=== PATIENT | male | born 1955 | race Caucasian/White ===

== ENCOUNTER 2023-10-08 10:38 | Inpatient (IN) ==
[2023-10-08] MEDS: NITROGLYCERIN 2% OINTMENT 30GM TUBE EXT STA (10:55)
[2023-10-08] MEDS: METOPROLOL TARTRATE 1 MG/ML VIAL IV ONE (10:55)
[2023-10-08] MEDS: NITROGLYCERIN 2% OINTMENT 30GM TUBE EXT ONE (10:55)
[2023-10-08] MEDS: METOPROLOL TARTRATE 1 MG/ML VIAL IV STA (10:56)
--- NOTE | 2023-10-08 10:58 | Emergency Department Note ---
Impression & Plan Precordial chest pain, CHF (congestive heart failure), Acute electrocardiogram changes, History of coronary artery disease, Elevated troponin, Hypomagnesemia ED Provider Note NAME: VIGNESH OJEDA AGE: 67 SEX: M : 1955 ARRIVES VIA: Ambulance INFORMANT: [Patient][ems] ED PROVIDER(S): [Evan Toro MD] CHIEF COMPLAINT: Chest pain HISTORY OF PRESENT ILLNESS: The patient is a 67-year-old male who states that he has used a half of a bottle of his nitroglycerin in the last 3 days. Has had chest pain which has been responding to nitroglycerin. This morning, he took 3 nitroglycerin without relief. He took 2 baby aspirin. EMS gave him an additional 4 baby aspirin during the transport to the hospital. Patient states that he is currently having pain and it seems like today, the nitroglycerin was not helping. Patient does notice his symptoms come on with exertion. He feels short of breath, mildly sweaty and somewhat nauseated. Patient has a history of 2 bypasses in 2016. Of note, the patient did take his normal medications this a.m. PMHx/PSHx/Social Hx: See Below PHYSICAL EXAM: GENERAL: Patient is in no acute distress. HEENT: No acute trauma, normocephalic atraumatic, mucous membranes moist, no nasal congestion. NECK: No stridor, no adenopathy, no meningismus, trachea is midline. LUNGS: Diminished breath sounds with some occasional crackles bilaterally, no respiratory distress. HEART: No obvious murmur, occasional extra beat heard, normal rate. ABDOMEN: Soft, nontender, no peritonitis. EXTREMITIES: No cyanosis, full range of motion of all the joints without pain or difficulty. Mild to moderate bilateral pedal edema. NEUROLOGIC: Oriented x 3, no acute motor or sensory deficits, no focal weakness. SKIN: No jaundice, no diaphoresis. DIFFERENTIAL DIAGNOSIS: Cardiac ischemia, CT, anemia, electrolyte imbalance, CHF, among others. EMERGENCY DEPARTMENT PROCEDURES: MEDICAL DECISION MAKING: There is no leukocytosis or concerning anemia. There is a normal platelet count. No coagulopathy. No renal failure. Magnesium is low at 1.3. No concerning liver enzyme elevation. No evidence for pancreatitis. ECG showed what appears to be a normal sinus rhythm although, there were some ST depressions and T wave inversions laterally. Cardiac enzyme testing x 1 is somewhat elevated. This cardiac troponin elevation could be secondary to cardiac injury. BNP was elevated consistent with fluid overload. Chest x-ray does suggest some mild CHF. Cardiomegaly was seen. The patient presents with chest discomfort despite nitroglycerin taken at home. He has known coronary disease. The patient was given 2 inches of nitroglycerin paste. He received IV magnesium, he was given 5 mg of IV Lopressor. With the above treatment, the patient is now pain-free. A repeat ECG was done showing similar findings of the first. I did speak with Dr. Berrios of cardiology, no need for emergent cardiac catheterization/intervention. The patient is being hospitalized. He very likely has unstable angina. This has led to some cardiac injury, possibly a non-ST elevation CT. Further care in the hospital, further cardiac workup is warranted. I did speak with the patient about his findings, I spoke with case management, the on-call hospitalist was consulted. Prior/Outside records/notes reviewed: Today's EMS notes describing his complaints and transport to this hospital. ECG per my interpretation: Indication was chest pain. The ECG shows a sinus rhythm with PACs. The rate is 91. There is some baseline artifact. There is some ST depression in the lateral leads. No ST elevation. QTc is 504. Compared to an ECG from 24 April 2008, significant changes have occurred. Repeat ECG per my interpretation: Indication was chest pain. The ECG shows a normal sinus rhythm with a rate of 75. There are inverted T waves seen in the lateral leads. No obvious ST elevation. No PVCs. The QTc was 484. Compared to today's earlier ECG, I see no significant change. Continuous Cardiac Monitoring per my interpretation: An order was placed for continuous cardiac monitoring. The monitor shows a rate of 96 with normal sinus rhythm. Imaging/x-ray results per my interpretation: Chest x-ray shows potential CHF. There was no pneumonia or pneumothorax. Chronic Medical/Social conditions affecting care: History of coronary artery disease. Care/Management discussed with: Cardiology-Dr. Berrios. Case management and the on-call hospitalist. Level of care consideration(s): After review of the information above and other included data: --I believe the patient requires escalation of care to admission Critical Care Note: I have personally spent 46 minutes of critical care time in the direct management of this patient. This includes bedside care, interpretation of diagnostic studies, and testing, discussion with consultants, patient, and family members, and other required patient management activities. This 46 minutes is in excess of all separately billable procedures. DISPOSITION: Admission with cardiology consult Past Med/Surg History Medical History BPH (benign prostatic hyperplasia) Tobacco abuse CHF (congestive heart failure) HTN (hypertension) DM2 (diabetes mellitus, type 2) CAD (coronary artery disease) Surgical History (Updated 10/08/23 @ 13:34 by Silver Mcgraw MD) S/P CABG (coronary artery bypass graft) Social History Smoking Status: Current every day smoker Preferred Language: Burmese Feels Safe at Home: Yes Allergies Allergies Allergy/AdvReac Type Severity Reaction Status Date / Time isosorbide [From Imdur] Allergy Severe Nausea and Unverified 10/08/23 12:19 Headache Home Meds Home Medications Medication Instructions Recorded Confirmed cyanocobalamin (vitamin B-12) 1,000 mcg PO DAILY 10/08/23 10/08/23 1,000 mcg tablet,extended release (Vitamin B-12 ER) empagliflozin 25 mg tablet 12.5 mg PO DAILY 10/08/23 10/08/23 (Jardiance) lisinopril 10 mg tablet 10 mg PO DAILY 10/08/23 10/08/23 metoprolol tartrate 25 mg tablet 25 mg PO BID 10/08/23 10/08/23 nitroglycerin 0.4 mg sublingual 0.4 mg sublingual UD PRN Chest Pain 10/08/23 10/08/23 tablet (Nitrostat) omeprazole 20 mg capsule,delayed 20 mg PO DAILY 10/08/23 10/08/23 release rosuvastatin 20 mg tablet 20 mg PO DAILY 10/08/23 10/08/23 terazosin 2 mg capsule 2 mg PO HS 10/08/23 10/08/23 Results & Data (ED) Vital Signs Vital Signs - 24 hr 10/08/23 10:39 10/08/23 10:46 10/08/23 10:53 Temperature 36.8 C Temperature Source Oral Pulse Rate 88 Pulse Rate [Apical] Pulse Rate from SpO2 Sensor Pulse Rhythm Irregular Respiratory Rate 34 H Respiratory Effort / Characteristics Non-Labored Spontaneous Respiratory Depth Normal Respiratory Pattern Regular Blood Pressure 170/96 H Blood Pressure [Left Arm] Blood Pressure Mean 120 Blood Pressure Mean [Left Arm] Pulse Oximetry 94 Oxygen Delivery Method Room Air Room Air Room Air Sepsis Recent Fever Within 48 Hours No Sepsis New/Unexplained Change in Mental Status No Sepsis Action Taken by Nursing No Action Required 10/08/23 11:41 10/08/23 12:00 10/08/23 12:25 Temperature Temperature Source Pulse Rate 77 77 71 Pulse Rate [Apical] Pulse Rate from SpO2 Sensor 77 Pulse Rhythm Respiratory Rate 28 H Respiratory Effort / Characteristics Respiratory Depth Respiratory Pattern Blood Pressure 137/80 107/82 Blood Pressure [Left Arm] Blood Pressure Mean 90 Blood Pressure Mean [Left Arm] Pulse Oximetry 89 L Oxygen Delivery Method Sepsis Recent Fever Within 48 Hours Sepsis New/Unexplained Change in Mental Status Sepsis Action Taken by Nursing 10/08/23 12:30 10/08/23 12:30 10/08/23 13:00 Temperature Temperature Source Pulse Rate 71 75 Pulse Rate [Apical] 73 Pulse Rate from SpO2 Sensor 71 75 Pulse Rhythm Respiratory Rate 21 23 26 H Respiratory Effort / Characteristics Non-Labored Spontaneous Respiratory Depth Normal Respiratory Pattern Regular Blood Pressure 114/71 132/75 Blood Pressure [Left Arm] 114/71 Blood Pressure Mean 85 94 Blood Pressure Mean [Left Arm] 85 Pulse Oximetry 95 95 94 Oxygen Delivery Method Room Air Sepsis Recent Fever Within 48 Hours Sepsis New/Unexplained Change in Mental Status Sepsis Action Taken by Nursing 10/08/23 13:30 10/08/23 14:03 10/08/23 14:30 Temperature Temperature Source Pulse Rate 75 91 H Pulse Rate [Apical] 74 Pulse Rate from SpO2 Sensor 75 90 Pulse Rhythm Respiratory Rate 22 30 H 19 Respiratory Effort / Characteristics Non-Labored Spontaneous Respiratory Depth Normal Respiratory Pattern Blood Pressure 126/71 122/81 Blood Pressure [Left Arm] 115/66 Blood Pressure Mean 89 94 Blood Pressure Mean [Left Arm] 82 Pulse Oximetry 95 95 95 Oxygen Delivery Method Room Air Sepsis Recent Fever Within 48 Hours Sepsis New/Unexplained Change in Mental Status Sepsis Action Taken by Nursing 10/08/23 14:30 Temperature Temperature Source Pulse Rate 75 Pulse Rate [Apical] Pulse Rate from SpO2 Sensor Pulse Rhythm Respiratory Rate 19 Respiratory Effort / Characteristics Respiratory Depth Respiratory Pattern Blood Pressure 115/66 Blood Pressure [Left Arm] Blood Pressure Mean 82 Blood Pressure Mean [Left Arm] Pulse Oximetry Oxygen Delivery Method Sepsis Recent Fever Within 48 Hours Sepsis New/Unexplained Change in Mental Status Sepsis Action Taken by Residential Medications Current Medication List: was personally reviewed by me Laboratory Data Attestation: I reviewed the patient's lab results. 10/08/23 10:50 10/08/23 10:50 Lab Results 10/08/23 10/08/23 Range/Units 10:50 12:29 WBC 8.25 (4.8-10.8) K/ul RBC 4.15 L (4.70-6.10) M/uL Hgb 13.8 L (14.0-18.0) g/dl Hct 42.3 (42.0-52.0) % MCV 101.9 H (80.0-100.0) fL MCH 33.3 (25.0-34.0) pg MCHC 32.6 (32.0-36.0) g/dL RDW Std Deviation 50.3 H (36.4-46.3) fL RDW Coeff of Alexandr 13.5 (11.5-14.5) % Plt Count 184 (130-400) K/uL MPV 10.3 (9.4-12.4) fL Immature Gran % (Auto) 0.5 % Neut % (Auto) 77.3 % Lymph % (Auto) 13.7 % Luce % (Auto) 6.3 % Eos % (Auto) 1.6 % Baso % (Auto) 0.6 % Neut # (Auto) 6.38 (1.40-6.50) K/uL Lymph # (Auto) 1.13 L (1.20-3.40) K/uL Luce # (Auto) 0.52 (0.11-0.59) K/uL Eos # (Auto) 0.13 (0.00-0.50) K/uL Baso # (Auto) 0.05 (0.00-0.20) K/uL Immature Gran # (Auto) 0.04 (0.01-0.20) K/uL PT 10.9 (9.0-12.0) Seconds INR 1.0 (0.9-1.1) APTT 28 (21-31) Seconds PTT Ratio 1.0 Sodium 138 (136-145) mmol/L Potassium 3.6 (3.5-5.1) mmol/L Chloride 103 (98-107) mmol/L Carbon Dioxide 23 (21-32) mmol/L Anion Gap 12 H (3-11) BUN 11 (6-23) mg/dl Creatinine 0.76 (0.6-1.4) mg/dl Est Cr Clr Drug Dosing 106.9 ml/min Est GFR ( Amer) 108.7 ml/min Est GFR (Non-Af Amer) 93.7 ml/min BUN/Creatinine Ratio 14.5 (10-20) Glucose 226 H (70-99(Fasting)) mg/dl Estimat Average Glucose 206 mg/dl Hemoglobin A1c 8.8 H (4.5-5.6) % Calcium 9.5 (8.6-10.3) mg/dl Magnesium 1.3 L (1.7-2.4) mg/dl Total Bilirubin 0.5 (0.2-1.0) mg/dl AST 20 (13-39) U/L ALT 18 (7-52) U/L Alkaline Phosphatase 48 (34-104) U/L Troponin I High Sens 28.7 H 214.9 H* D (0-20) pg/ml B-Natriuretic Peptide 647 H (0-100) pg/ml Total Protein 7.8 (6.0-8.3) gm/dl Albumin 4.6 (3.4-5.0) gm/dl Globulin 3.2 (2.5-4.0) gm/dl Albumin/Globulin Ratio 1.4 (0.9-2) Lipase 20 (11-82) U/L Administered Medications Heparin Sodium/Dextrose (Heparin Sodium/Dextrose) 25,000 units in 500 mls @ 19 mls/hr IV .Q24H [facility]; Protocol Stop: 11/07/23 13:44 Last Admin: 10/08/23 14:28 Dose: 950 units/hr, 19 mls/hr Documented By: RONNY Co-signed By: MARC Magnesium Sulfate/Dextrose (Magnesium Sulfate / D5w) 1 gm in 100 mls @ 50 mls/hr IV Q2H [facility] Stop: 10/08/23 17:29 Last Admin: 10/08/23 14:44 Dose: Not Given Documented By: Admin: 10/08/23 14:43 Dose: Not Given Documented By: Discontinued Medications Furosemide (Furosemide Inj 20 Mg/2 Ml Vial) 20 mg IV ONE ONE Stop: 10/08/23 13:29 Last Admin: 10/08/23 14:30 Dose: 20 mg Documented By: RONNY Heparin Sodium (Porcine) (Heparin Sod (Porcine) 1000 Unit/Ml) 4,000 units IV NOW ONE Stop: 10/08/23 13:44 Last Admin: 10/08/23 14:28 Dose: 4,000 units Documented By: RONNY Co-signed By: MARC Magnesium Sulfate/Dextrose (Magnesium Sulfate / D5w) 1 gm in 100 mls @ 100 mls/hr IV Q1H [facility] Stop: 10/08/23 13:33 Last Infusion: 10/08/23 13:59 Dose: Infused Documented By: Admin: 10/08/23 12:38 Dose: 100 mls/hr Documented By: Infusion: 10/08/23 12:38 Dose: Infused Documented By: Admin: 10/08/23 11:40 Dose: 100 mls/hr Documented By: RONNY Metoprolol Tartrate (Metoprolol Tartrate 1 Mg/Ml Vial) Confirm Administered Dose 5 mg IV .STK-MED ONE Stop: 10/08/23 10:54 Last Admin: 10/08/23 10:55 Dose: Not Given Documented By: RONNY Metoprolol Tartrate (Metoprolol Tartrate 1 Mg/Ml Vial) 5 mg IV NOW STA Stop: 10/08/23 10:54 Last Admin: 10/08/23 10:56 Dose: 5 mg Documented By: RONNY Nitroglycerin (Nitroglycerin 2% Ointment 30gm Tube) Confirm Administered Dose 18 inch EXT .STK-MED ONE Stop: 10/08/23 10:52 Last Admin: 10/08/23 10:55 Dose: Not Given Documented By: RONNY Nitroglycerin (Nitroglycerin 2% Ointment 30gm Tube) 2 inch EXT NOW STA Stop: 10/08/23 10:54 Last Admin: 10/08/23 10:55 Dose: 2 inch Documented By: RONNY Imaging Data Radiologist's Impression: Chest X-Ray 10/08/23 10:46 XR chest 1V portable HISTORY: 67 years-old Male Chest pain, nonspecific COMPARISON: None TECHNIQUE: AP view of the chest FINDINGS: Cardiac silhouette is enlarged. Median sternotomy wires are present with findings suggestive of probable prior CABG. Pulmonary vascular congestion with nonspecific interstitial coarsening. No pneumothorax, pleural effusion or airspace consolidation. Degenerative changes of the shoulders and spine. IMPRESSION: 1. Cardiomegaly with pulmonary vascular congestion and nonspecific interstitial coarsening. 2. No airspace consolidation typical for pneumonia. ACT 112: Negative or not required by law. The above report was generated using voice recognition software. It may contain grammatical, syntax or spelling errors. Electronically signed by: Moses Espinosa M.D. 10/08/2023 11:24 AM Discharge Plan Visit Data Chief Complaint: Chest Pain Stated Complaint: CHEST PAIN ED Provider: Evan Toro Discharge Problem: Precordial chest pain, CHF (congestive heart failure), Acute electrocardiogram changes, History of coronary artery disease, Elevated troponin, Hypomagnesemia Patient Disposition: Admitted As Inpatient Condition: Fair Forms Stand Alone Forms: [facility] Prescriptions Prescriptions: No Action cyanocobalamin (vitamin B-12) [Vitamin B-12] 1,000 mcg Tablet Extended Release 1,000 mcg PO DAILY terazosin 2 mg Capsule 2 mg PO HS lisinopril 10 mg Tablet 10 mg PO DAILY nitroglycerin [Nitrostat] 0.4 mg Tablet, Sublingual 0.4 mg sublingual UD PRN (Reason: Chest Pain) omeprazole 20 mg Capsule,Delayed Release(Dr/Ec) 20 mg PO DAILY rosuvastatin 20 mg Tablet 20 mg PO DAILY metoprolol tartrate 25 mg Tablet 25 mg PO BID Jardiance 25 mg Tablet 12.5 mg PO DAILY Referrals Referrals: Rafiq Oneill MD [Outside Practitioners] - Discharge Problem: CHF (congestive heart failure) Qualifiers: Heart failure type: unspecified Heart failure chronicity: acute Qualified Code(s): I50.9 - Heart failure, unspecified
[2023-10-08 11:06] LABS: Basophils # (auto) 0.05 K/uL (0.00-0.20); Basophils % (auto) 0.6 %; Eosinophils # (auto) 0.13 K/uL (0.00-0.50); Eosinophils % (auto) 1.6 %; Hematocrit (blood only) 42.3 % (42.0-52.0); Hemoglobin 13.8 g/dl (14.0-18.0); Immature Granulocytes # (auto) 0.04 K/uL (0.01-0.20); Immature Granulocytes % (auto) 0.5 %; Lymphocytes # (auto) 1.13 K/uL (1.20-3.40); Lymphocytes % (auto) 13.7 %; Mean Corpuscular Hemoglobin 33.3 pg (25.0-34.0); Mean Corpuscular Hgb Conc 32.6 g/dL (32.0-36.0); Mean Corpuscular Volume 101.9 fL (80.0-100.0); Mean Platelet Volume 10.3 fL (9.4-12.4); Monocytes # (auto) 0.52 K/uL (0.11-0.59); Monocytes % (auto) 6.3 %; Neutrophils # (auto) 6.38 K/uL (1.40-6.50); Neutrophils % (auto) 77.3 %; Platelet Count 184 K/uL (130-400); RDW Coefficient of Variation 13.5 % (11.5-14.5); RDW Standard Deviation 50.3 fL (36.4-46.3); Red Blood Count 4.15 M/uL (4.70-6.10); White Blood Count 8.25 K/ul (4.8-10.8)
[2023-10-08 11:23] LABS: Albumin Globulin Ratio 1.4 (0.9-2); Albumin Level 4.6 gm/dl (3.4-5.0); BUN Creatinine Ratio 14.5 (10-20); Bilirubin,Total 0.5 mg/dl (0.2-1.0); Calcium 9.5 mg/dl (8.6-10.3); Creatinine Clr Calc Pharmacy 106.9 ml/min; Est GFR (African American) 108.7 ml/min; Est GFR (Non-African American) 93.7 ml/min; Globulin 3.2 gm/dl (2.5-4.0); Magnesium 1.3 mg/dl (1.7-2.4); Potassium 3.6 mmol/L (3.5-5.1); Total Protein 7.8 gm/dl (6.0-8.3)
--- NOTE | 2023-10-08 11:26 | XRay Report ---
XR chest 1V portable HISTORY: 67 years-old Male Chest pain, nonspecific COMPARISON: None TECHNIQUE: AP view of the chest FINDINGS: Cardiac silhouette is enlarged. Median sternotomy wires are present with findings suggestive of proba ble prior CABG. Pulmonary vascular congestion with nonspecific interstitial coarsening. No pneumothor ax, pleural effusion or airspace consolidation. Degenerative changes of the shoulders and spine. IMPRESSION: 1. Cardiomegaly with pulmonary vascular congestion and nonspecific interstitial coarsening. 2. No airspace consolidation typical for pneumonia. ACT 112: Negative or not required by law. The above report was generated using voice recognition software. It may contain grammatical, syntax o r spelling errors. Electronically signed by: Moses Espinosa M.D. 10/08/2023 11:24 AM
[2023-10-08 11:29] LABS: Troponin I High Sensitivity 28.7 pg/ml (0-20)
[2023-10-08] MEDS: MAGNESIUM SULFATE / D5W 1 GM/100 ML BAG IV SCH ×2 (11:40→14:43)
[2023-10-08 11:43] LABS: Partial Thromboplastin Time 28 Seconds (21-31); Prothrombin Time 10.9 Seconds (9.0-12.0)
--- NOTE | 2023-10-08 13:06 | History & Physical Report ---
Date of Service October 08, 2023 Assessment & Plan (1) Unstable angina: Plan: Unstable angina Patient with history of CAD with double bypass 2018 at [facility], no history of PCI/stents Has had intermittent chest pain since then which has generally improved with nitro; however severity and frequency have increased in the last week and in particular the last 3 days. Has occurred much more with exertion, has required more nitro, and took longer to resolve with rest. pt does not think he had orthopnea earlier in the but notes that his chest pain this morning occurred while laying down Morning of presentation patient had an episode of chest pain much worse in q uality substernal/left-sided which occurred while he was at rest and laying down. This did not improve despite 3 nitro. He took 2 aspirin and received an additional 4 aspirin prehospital, and received metoprolol 5 mg x 1 while in the ER gradually improved with Nitropaste and metoprolol down to a /10, and is now pain-free at time of hospitalist admitting assessment. Initial troponin 28.7, 2-hour repeat increased at 214 [address]KG with subtle lateral ST depressions, no ST segment elevations. No baseline available for review. Records have been requested from the [facility] Repeat EKG now the patient is pain-free Heparin GTT Echo pending Patient is with evidence of fluid overload including pitting edema, trace JVD,? Orthopnea, and elevated BNP with no baseline for comparison. Cardiology consulted, discussed with cardiology. Agree with treating as unstable angina and will heparinize at this time. Patient is currently pain- free, emergent catheterization not recommended at this time. Troponin is trended and echo is pending. Will diurese and follow (2) CHF (congestive heart failure): Plan: Acute CHF, history of CAD with double bypass - Unknown prior EF. [facility] Patient denies a history of CHF, notes he was on fluid pills for just a couple of months after his bypass and then was no longer in need of these Does have mild JVD, pulmonary congestion on x-ray, and pitting edema of the lower extremities bilaterally with BNP of 647. [employer] On Jardiance, lisinopril, metoprolol 25 mg tartrate twice daily, rosuvastatin 20 mg daily [employer], ASA 81mg daily per pt Continue Lasix 20 mg twice daily, titrate net 1 L negative per day, heart healthy diet (3) CAD (coronary artery disease): Plan: - Daily aspirin, beta-damian, BREANA continued. SGLT2 temporarily held while converted to basal bolus insulin (4) S/P CABG (coronary artery bypass graft): Plan: As noted (5) DM2 (diabetes mellitus, type 2): Plan: DM 2 On metformin and Jardiance Switch to basal bolus SSI while inpatient. 9 units Lantus twice daily, CF 45/ratio 15 A1c pending Goal BSG [id number] Glucose checks AC/at bedtime. DM2/heart healthy diet (6) HTN (hypertension): Plan: Lisinopril continued, metoprolol continued. Normotensive at bedside assess (7) Tobacco abuse: Plan: Cessation recommended Patch ordered (8) Soft tissue mass: Plan: Left shoulder mass Present for many years, patient reports this is very slowly increased in size. Generally not painful unless he bumps it Minimally tender, spongy lesion of approximately 4 cm diameter which is mobile. Suspicious for lipoma. This is not well-visualized on x-ray. Limited ultrasound for initial evaluation ordered (9) BPH (benign prostatic hyperplasia): Plan: BPH/LUTS Terazosin 2 mg p.o. at bedtime Plan DVT prophylaxis: Anticoagulated Diet: Heart healthy/DM2 Disposition: PCU CODE STATUS: Full code History of Present Illness Primary Care Provider: [facility] is a 67-year-old male patient of the [facility] who presents with chest pain for 3 days improved with nitro but which recurred this morning and did not improve after 3 tablets of nitro. Patient received full dose aspirin and route. Symptoms have been worse with exertion but occurred today at rest. Patient reports his symptoms started with Chest pain recurrently in the last week. Has had rare intermittent pain 'couldn't tell you how often', but the last 2-3 days had gotten worse. Chest pain would be brought out by getting up to go to the bathroom, low substernal a little to the left. 'Gotten up to 10/10'. Nitro had gotten rid of it completely up until this past week. Last 2 -3 days still helped not always completely improved. Pain this morning stated when he was laying down at rest. Does not think he has had orthopnea/shortness of breath laying down earlier in the week, but episode this morning did occur when he was in bed laying down nitro pills did not work. 'Brand new patch, took 3 and it did nothing'. Had a total of 6 aspirin this morning, 2 at home and then 4 more by EMS. Endorses shortness of breath but no sweating this morning. He reports he is completely pain free again at time of assessment ~1pm after nitro patch placed. Hx of Bipass 2016 at [facility], [place], operated by [facility]. No history of stents. Has felt ok since, doesn't remembe rif he had a stress test or not.PCP is Dr. Allison at [facility]. denies syncope/presyncope. Denies fever/chills/sweats. Denies nausea/vomiting. Endorses bilateral lower extremity swelling which has been progressing for "a while "he does not know if this is worsened recently. He denies past history of congestive heart failure, was on fluid pills for couple of months after his bypass in 2018 but has not been on the symptoms. He reports he does not know if this is because they just were not refilled or if they were meant to be discontinued. Endorses ongoing tobacco abuse Somewhat poor historian but bedside med History: DM2 (on metformin, recently started on 'something but I'm not sure what, empagliflozin sounds right). DOes not know his metformin dose, just that its 2 pills twice daily. Metoprolol twice daily. Lisinopril for BP, took this morning. Takes aspirin 81mg daily. Takes rosuvasttin 20mg, took this morning. Terazosin for BPH. Medical History: Reviewed Medications: Reviewed Surgical History: Reviewed Family history: Reviewed Allergies: Reviewed. Allergic to imdur. --> headache and nauseua. No medication allergie Social History: Current smoker. ~0.5-1ppd cigarette use x20 years. Alcohol use, every other day has a 6 pack. No withdrawal or shakes, has gone several days in a row recently without etoh and no sx. Recreational marijuana, is eligable for medical card but hasn't paid the fee. Code Status: Full Code Allergies Allergy/AdvReac Type Severity Reaction Status Date / Time isosorbide [From Imdur] Allergy Severe Nausea and Unverified 10/08/23 12:19 Headache Home Medications Medication Instructions Recorded Confirmed Type cyanocobalamin (vitamin B-12) 1,000 mcg PO DAILY 10/08/23 10/08/23 History 1,000 mcg tablet,extended release (Vitamin B-12 ER) empagliflozin 25 mg tablet 12.5 mg PO DAILY 10/08/23 10/08/23 History (Jardiance) lisinopril 10 mg tablet 10 mg PO DAILY 10/08/23 10/08/23 History metoprolol tartrate 25 mg tablet 25 mg PO BID 10/08/23 10/08/23 History nitroglycerin 0.4 mg sublingual 0.4 mg sublingual UD PRN Chest Pain 10/08/23 10/08/23 History tablet (Nitrostat) omeprazole 20 mg capsule,delayed 20 mg PO DAILY 10/08/23 10/08/23 History release rosuvastatin 20 mg tablet 20 mg PO DAILY 10/08/23 10/08/23 History terazosin 2 mg capsule 2 mg PO HS 10/08/23 10/08/23 History Past Med/Surg History Medical History (Updated 10/08/23 @ 13:34 by Silver Mcgraw MD) BPH (benign prostatic hyperplasia) Tobacco abuse CHF (congestive heart failure) HTN (hypertension) DM2 (diabetes mellitus, type 2) CAD (coronary artery disease) Surgical History (Updated 10/08/23 @ 13:34 by Silver Mcgraw MD) S/P CABG (coronary artery bypass graft) Social History Smoking Status: Current every day smoker Preferred Language: Swazi Feels Safe at Home: Yes Physical Exam Physical Exam: General: A&Ox3. NAD. Cooperative. HEENT: Atraumatic, normocephalic. Vision/hearing grossly intact. Pulm: diminished, trace bibasilar crackles that clear no overt rales. No wheeze symmetrical chest rise. No increased work of breathing. No respiratory distress. Cardiac: RRR, systolic murmur. Radial pulses intact and symmetrical. JVD difficult to appreciate due to duarte, however appears to be ~2-3 cm above the clavicle with HJR Abdominal: Nontender, nondistended, soft. BS present. Extremities: Warm, dry. Bilateral lower extremities with chronic stasis changes and 23+ edema bilaterally. No calf tenderness. No lower extremity warmth/erythema Left upper anterior shoulder with soft tissue density, firm mobile with small overlying contusion. Results & Data Results & Data Vital Signs (Past 12 Hours) Vital Signs Temp Pulse Pulse Resp BP BP Pulse Ox 10/08/23 12:30 73 21 114/71 95 10/08/23 12:25 71 10/08/23 11:41 77 137/80 10/08/23 10:53 10/08/23 10:46 10/08/23 10:39 36.8 C 88 34 H 170/96 H 94 O2 Del Method 10/08/23 12:30 Room Air 10/08/23 12:25 10/08/23 11:41 10/08/23 10:53 Room Air 10/08/23 10:46 Room Air 10/08/23 10:39 Room Air PG Care Time/CCT Total # of Minutes Spent Total Time Spent with Patient: Total time spent is greater than 50% in coordination of care (as documented) at patient's floor/unit and/or counseling patient: Coding Level of Care Code 69179 INT INP/OBS CARE 3/75MIN Diagnoses Unstable angina I20.0 CHF (congestive heart failure) I50.9 CAD (coronary artery disease) I25.10 S/P CABG (coronary artery bypass graft) Z95.1 DM2 (diabetes mellitus, type 2) E11.9 HTN (hypertension) I10 Tobacco abuse Z72.0 Soft tissue mass M79.89 BPH (benign prostatic hyperplasia) N40.0
[2023-10-08] MEDS ORDERED: GLUCOSE 40% GEL 15 GM TUBE PO PRN (13:28)
[2023-10-08] MEDS ORDERED: GLUCAGON FOR INJ 1 MG VIAL SQ PRN (13:28)
[2023-10-08] MEDS ORDERED: CARBOHYDRATES FOR HYPOGLYCEMIA PO PRN (13:28)
[2023-10-08] MEDS ORDERED: Heparin IV Adult Wt-Based Low-Dose w/ INITIAL Bolus Protocol IV STA (13:28)
[2023-10-08] MEDS ORDERED: DEXTROSE 50% 50 ML SYRINGE IV PRN (13:28)
[2023-10-08] MEDS ORDERED: GLUCOSE 10 TAB/TUBE PO PRN (13:28)
[2023-10-08] MEDS ORDERED: NICOTINE POLACRILEX 2 MG GUM MT PRN (13:42)
[2023-10-08 14:07] LABS: Estimated Average Glucose 206 mg/dl; Hemoglobin A1C 8.8 % (4.5-5.6)
[2023-10-08] MEDS: HEPARIN SODIUM/DEXTROSE 25,000 UNITS/500 ML BAG IV SCH (14:28)
[2023-10-08] MEDS: HEPARIN SOD (PORCINE) 1000 UNIT/ML IV ONE ×2 (14:28→23:06)
[2023-10-08] MEDS: FUROSEMIDE INJ 20 MG/2 ML VIAL IV ONE (14:30)
[2023-10-08] MEDS ORDERED: ACETAMINOPHEN 325 MG TAB PO PRN (15:58)
--- NOTE | 2023-10-08 16:18 | XCELERA ---
[id number]
[2023-10-08] MEDS: NITROGLYCERIN 2% OINTMENT 30GM TUBE EXT SCH (17:36)
[2023-10-08] MEDS: INSULIN ASPART PER UNIT CHARGE SC SCH (17:36)
[2023-10-08] MEDS: LANTUS PER UNIT CHARGE SQ SCH (21:01)
[2023-10-08 21:51] LABS: Magnesium 1.8 mg/dl (1.7-2.4)
[2023-10-08 22:03] LABS: ANTI-Xa, UFH(UnfractionatedHep 0.17 IU/ml (0.3-0.7)
[2023-10-08] MEDS: MAGNESIUM OXIDE 400 MG TAB PO SCH (22:15)
[2023-10-08] MEDS: METOPROLOL TARTRATE 25 MG TAB PO SCH (22:16)
[2023-10-08] MEDS: TERAZOSIN HCL 1 MG CAP PO SCH (22:16)
[2023-10-09 05:23] LABS: Basophils # (auto) 0.06 K/uL (0.00-0.20); Basophils % (auto) 0.8 %; Eosinophils # (auto) 0.18 K/uL (0.00-0.50); Eosinophils % (auto) 2.4 %; Hematocrit (blood only) 34.2 % (42.0-52.0); Hemoglobin 11.7 g/dl (14.0-18.0); Immature Granulocytes # (auto) 0.02 K/uL (0.01-0.20); Immature Granulocytes % (auto) 0.3 %; Lymphocytes # (auto) 1.23 K/uL (1.20-3.40); Lymphocytes % (auto) 16.3 %; Mean Corpuscular Hemoglobin 33.7 pg (25.0-34.0); Mean Corpuscular Hgb Conc 34.2 g/dL (32.0-36.0); Mean Corpuscular Volume 98.6 fL (80.0-100.0); Mean Platelet Volume 10.5 fL (9.4-12.4); Monocytes # (auto) 0.56 K/uL (0.11-0.59); Monocytes % (auto) 7.4 %; Neutrophils # (auto) 5.49 K/uL (1.40-6.50); Neutrophils % (auto) 72.8 %; Platelet Count 172 K/uL (130-400); RDW Coefficient of Variation 13.4 % (11.5-14.5); RDW Standard Deviation 48.7 fL (36.4-46.3); Red Blood Count 3.47 M/uL (4.70-6.10); White Blood Count 7.54 K/ul (4.8-10.8)
[2023-10-09 05:41] LABS: BUN Creatinine Ratio 20.6 (10-20); Calcium 8.7 mg/dl (8.6-10.3); Creatinine Clr Calc Pharmacy 131.3 ml/min; Est GFR (African American) 117.4 ml/min; Est GFR (Non-African American) 101.3 ml/min; Magnesium 1.8 mg/dl (1.7-2.4); Potassium 3.5 mmol/L (3.5-5.1)
[2023-10-09 05:50] LABS: Troponin I High Sensitivity 1943.4 pg/ml (0-20)
[2023-10-09 05:54] LABS: ANTI-Xa, UFH(UnfractionatedHep 0.22 IU/ml (0.3-0.7)
--- NOTE | 2023-10-09 07:57 | Electrocardiogram Report ---
Test Reason : Blood Pressure : / mmHG Vent. Rate : 091 BPM Atrial Rate : 091 BPM P-R Int : 178 ms QRS Dur : 096 ms QT Int : 400 ms P-R-T Axes : 088 -39 149 degrees QTc Int : 493 ms Sinus rhythm with Premature atrial complexes Left axis deviation Minimal voltage criteria for LVH, may be normal variant ( Diego product ) Cannot rule out Anterior infarct , age undetermined Abnormal ECG When compared with ECG of 24-APR-2008 17:31, No significant change Confirmed by Rocco Tineo ([id number]) on 10/09/2023 7:57:09 AM Referred By: Confirmed By:Rocco Tineo
--- NOTE | 2023-10-09 08:17 | Ultrasound Report ---
LEFT SUPRACLAVICULAR ULTRASOUND CLINICAL HISTORY: Left upper anterior chest/shoulder, ?lipoma COMPARISON STUDY: No previous studies for comparison. TECHNIQUE: Sonography of the left supraclavicular region at site of palpable abnormality was performe d. FINDINGS: At site of palpable abnormality, there is a corresponding oval shaped left supraclavicular subcutaneous mass which measures 2.4 x 1.5 x 2.1 cm. This contains color flow. No additional abnormal ities are identified. IMPRESSION: 2.4 x 1.5 x 2.1 cm left supraclavicular subcutaneous mass which represents the palpable abnormality. This contains color flow and therefore does not reflect a cyst or lipoma. This is patho logically indeterminate. Ultrasound-guided biopsy could be performed if indicated. ACT 112: Negative or not required by law. Electronically signed by: Rk Clemens M.D. 10/09/2023 8:15 AM
[2023-10-09] MEDS: lisinopril 10 MG TAB PO SCH (09:58)
[2023-10-09] MEDS: ROSUVASTATIN CALCIUM 20 MG TAB PO SCH (09:59)
[2023-10-09] MEDS: CYANOCOBALAMIN (B-12) 500 MCG TABLET PO SCH (09:59)
[2023-10-09] MEDS: FUROSEMIDE 40 MG/4 ML VIAL IV SCH (09:59)
[2023-10-09] MEDS: ASPIRIN 81 MG ECTAB PO SCH (09:59)
[2023-10-09] MEDS: NICOTINE 14 MG/24 HR PATCH TD SCH (10:00)
[2023-10-09] MEDS: POTASSIUM CHLORIDE CRTAB 20 MEQ TABCR PO SCH (10:07)
--- NOTE | 2023-10-09 10:22 | Cardiology Consultation ---
Date of Consultation October 09, 2023 Assessment & Plan (1) NSTEMI (non-ST elevated myocardial infarction): (2) Aortic stenosis: (3) Tobacco abuse: Plan 1. Chest discomfort and NSTEMI: He most likely has progressive disease, probably in large part because of lack of risk factor modification (smoking, etc.). I think we should perform cardiac catheterization, he appears to have unstable angina as well. I will arrange for catheterization tomorrow. 2. Aortic stenosis: He does have significant aortic stenosis both on exam and by echocardiography. It is not likely to be severe enough that we would want to intervene, however we can evaluate this at catheterization. 3. Tobacco abuse: He needs to stop smoking, although I doubt he will. Hopefully we can encourage him to. History of Present Illness Reason for Consultation: Chest pain, NSTEMI Attending Physician: Rodrick Anders MD History of Present Illness This is a 67-year-old male who has a history of known coronary disease including bypass surgery in 2016 or 2018 at [facility]. It appears he has not been followed locally, he is followed at the [facility] and he tells me he has not had a catheterization since his bypass surgery. He has been having intermittent chest discomfort which has been increasing in frequency and he has been using nitroglycerin. This is generally exertional. He had an episode of chest discomfort which was worse than typical on the morning of October 08, 2023, it did not improve after 3 nitroglycerin and he took several aspirin, EMS gave him 4 additional aspirin and he was given intravenous metoprolol and Nitropaste and gradually the pain resolved. He was admitted and started on intravenous heparin . He has not had recurrent chest discomfort An echocardiogram done October 08, 2023 showed normal left ventricular systolic function with mild left atrial dilatation and moderate to severe calcific aortic stenosis with a mean valve gradient of 31 mmHg and a calculated aortic valve area of 0.83 cm. His initial electrocardiogram does not show acute changes although there are some lateral ST-T abnormalities which could be due to LVH or ischemia. A repeat electrocardiogram on October 08, 2023 shows worsening of the lateral T wave abnormalities but no ST elevation. An electrocardiogram this morning shows progression of these findings but still no ST elevation. His initial high-sensitivity troponin was 28.7 with his 2-hour repeat at 214, however 10 hours after his initial troponin was 1678 and it peaked at 1943 and this morning (23 hours after his first) had dropped back to 1378. Allergies Allergy/AdvReac Type Severity Reaction Status Date / Time isosorbide [From Imdur] Allergy Severe Nausea and Unverified 10/08/23 12:19 Headache Home Medications Medication Instructions Recorded Confirmed Type cyanocobalamin (vitamin B-12) 1,000 mcg PO DAILY 10/08/23 10/08/23 History 1,000 mcg tablet,extended release (Vitamin B-12 ER) empagliflozin 25 mg tablet 12.5 mg PO DAILY 10/08/23 10/08/23 History (Jardiance) lisinopril 10 mg tablet 10 mg PO DAILY 10/08/23 10/08/23 History metoprolol tartrate 25 mg tablet 25 mg PO BID 10/08/23 10/08/23 History nitroglycerin 0.4 mg sublingual 0.4 mg sublingual UD PRN Chest Pain 10/08/23 10/08/23 History tablet (Nitrostat) omeprazole 20 mg capsule,delayed 20 mg PO DAILY 10/08/23 10/08/23 History release rosuvastatin 20 mg tablet 20 mg PO DAILY 10/08/23 10/08/23 History terazosin 2 mg capsule 2 mg PO HS 10/08/23 10/08/23 History Patient History Medical History BPH (benign prostatic hyperplasia) Tobacco abuse CHF (congestive heart failure) HTN (hypertension) DM2 (diabetes mellitus, type 2) CAD (coronary artery disease) Surgical History S/P CABG (coronary artery bypass graft) Social History Smoking Status: Current every day smoker Tobacco Type: Cigarettes Cigarettes Per Day: 10; Do You Dip or Chew Tobacco: No; Hx Alcohol Use: Yes Alcohol type: beer Hx Substance Use: No Preferred Language: Swedish [place] Required: No Beliefs That Will Affect Care: None Current Living Situation: Alone Other Information That Helps Us Care for You: No Feels Safe at Home: Yes Safety Concerns: Feels Safe At This Time Assistive Devices: Glasses Review of Systems Review of Systems: All systems reviewed & are unremarkable except as noted in HPI & below He continues to smoke Physical Exam Physical Exam: Constitutional: Alert, cooperative and in no distress. HEENT: Unremarkable Neck: No jugular venous distention, carotid pulses are normal and equal bilaterally without bruits. He has a transmitted murmur from aortic stenosis. Pulmonary: Clear to auscultation bilaterally. Cardiac: Regular rhythm with a grade 3/6 crescendo decrescendo murmur at the base, no gallop or rub. Abdomen: Soft, nontender with normal bowel sounds. Extremities: No edema. Distal pulses intact. Neurologic: No focal findings. Skin: No rash, ecchymoses or petechiae. Results & Data Vital Signs (Past 12 Hours) Vital Signs Temp Pulse Pulse Resp BP Pulse Ox O2 Del Method 10/09/23 07:40 63 10/09/23 07:14 37.2 C 71 20 140/75 97 Room Air 10/09/23 04:25 94 Room Air 10/09/23 03:50 36.7 C 68 19 124/66 91 Room Air 10/08/23 23:48 Room Air 10/08/23 23:47 36.5 C 72 20 111/63 94 Room Air Laboratory Results Cardiac Enzymes 10/08/23 10/08/23 10/08/23 Range/Units 10:50 12:29 21:15 AST 20 (13-39) U/L Troponin I High Sens 28.7 H 214.9 H* D 1678.0 H* D (0-20) pg/ml B-Natriuretic Peptide 647 H (0-100) pg/ml 10/09/23 10/09/23 Range/Units 04:57 09:14 AST (13-39) U/L Troponin I High Sens 1943.4 H* 1378.2 H* D (0-20) pg/ml B-Natriuretic Peptide (0-100) pg/ml Coagulation 10/08/23 10/08/23 Range/Units 10:50 12:29 PT 10.9 (9.0-12.0) Seconds APTT 28 (21-31) Seconds B-Natriuretic Peptide 647 H (0-100) pg/ml CBC 10/08/23 10/09/23 Range/Units 10:50 04:57 WBC 8.25 7.54 (4.8-10.8) K/ul RBC 4.15 L 3.47 L (4.70-6.10) M/uL Hgb 13.8 L 11.7 L (14.0-18.0) g/dl Hct 42.3 34.2 L (42.0-52.0) % Plt Count 184 172 (130-400) K/uL Neut # (Auto) 6.38 5.49 (1.40-6.50) K/uL Lymph # (Auto) 1.13 L 1.23 (1.20-3.40) K/uL [place] # (Auto) 0.52 0.56 (0.11-0.59) K/uL Eos # (Auto) 0.13 0.18 (0.00-0.50) K/uL Baso # (Auto) 0.05 0.06 (0.00-0.20) K/uL Comprehensive Metabolic Panel 10/08/23 10/09/23 Range/Units 10:50 04:57 Sodium 138 138 (136-145) mmol/L Potassium 3.6 3.5 (3.5-5.1) mmol/L Chloride 103 105 (98-107) mmol/L Carbon Dioxide 23 23 (21-32) mmol/L BUN 11 13 (6-23) mg/dl Creatinine 0.76 0.63 (0.6-1.4) mg/dl Glucose 226 H 153 H (70-99(Fasting)) mg/dl Calcium 9.5 8.7 (8.6-10.3) mg/dl AST 20 (13-39) U/L ALT 18 (7-52) U/L Alkaline Phosphatase 48 (34-104) U/L Total Protein 7.8 (6.0-8.3) gm/dl Albumin 4.6 (3.4-5.0) gm/dl Intake and Output 10/08/23 10/09/23 10/09/23 22:59 06:59 14:59 Intake Total 150 / 1217.633 870.966 / 1217.633 Output Total 400 / 400 200 / 200 Balance 150 / 817.633 470.966 / 817.633 -200 / -200 Intake: IV 320.966 / 517.633 Heparin Sodium/Dextrose 25,000 320.966 / 320.966 units In 500 ml @ 1,200 UNITS/ HR 24 mls/hr IV .[id number] [facility] Rx #:[id number] Oral 150 / 700 550 / 700 Output: Urine 400 / 400 200 / 200 Other: # Unmeasured Voids 0 Weight 101.9 kg 100.8 kg 99.592 kg Weight Measurement Method Built in Bedscale Built in Bedscale Standing Scale Patient Weight 10/10/23 06:59 Weight 99.592 kg Diagnostic Findings Telemetry: Sinus rhythm rate 60 to 70 bpm. PG Care Time/CCT Total # of Minutes Spent Total Time Spent with Patient: Total time spent is greater than 50% in coordination of care (as documented) at patient's floor/unit and/or counseling patient: Coding Level of Care Code 99323 INT INP/OBS CARE 3/75MIN Diagnoses NSTEMI (non-ST elevated myocardial infarction) I21.4 Aortic valve stenosis, etiology of cardiac valve disease unspecified I35.0 Cardiac valve disease etiology: etiology unspecified Tobacco abuse Z72.0 (2) Aortic stenosis Cardiac valve disease etiology: etiology unspecified Qualified Code(s): I35.0 - Nonrheumatic aortic (valve) stenosis
[2023-10-09 12:39] LABS: ANTI-Xa, UFH(UnfractionatedHep 0.23 IU/ml (0.3-0.7)
--- NOTE | 2023-10-09 17:10 | Hospitalist Progress Note ---
Date of Service October 09, 2023 Assessment & Plan (1) NSTEMI (non-ST elevated myocardial infarction): Plan: symptoms, EKG changes, and elevated troponin all c/w NSTEMI EKG with lateral T wave inversions (V3-V6, I/AVL) peak troponin 1942 chest pain resolved cont heparin drip cont asa 81mg daily cont metoprolol tartrate 25mg BID cont lisinopril 10mg daily remains on nitropaste 2" q6h - if any BP issues lower the dose or just stop cont statin (crestor 20mg daily) check lipids in am NPO after MN tonight for cath tomorrow appreciate cardiology consultation of note -- [facility] (2) Acute diastolic CHF (congestive heart failure): Plan: echo with grade 2 diastolic dysfunction preserved EF decompensated CHF likely 2nd to #1 s/p diuresis with improved pulmonary symptoms cont lasix x 2 doses today, place lasix on hold, and re-eval tomorrow for ongoing diuresis (3) CAD (coronary artery disease): Plan: Cont daily aspirin, beta-damian, BREANA SGLT2 on hold (4) S/P CABG (coronary artery bypass graft): Plan: 2 Vessel [facility] - 2016 (5) DM2 (diabetes mellitus, type 2): Plan: a1c 8.8% cont lantus BID cont novolog BSG ac/hs (6) HTN (hypertension): Plan: cont Lisinopril cont metoprolol cont terazosin (7) Tobacco abuse: Plan: Cessation recommended Declines nicoderm or nicorette gum (8) Soft tissue mass: Plan: Left shoulder mass Present for many years per patient but slowly increasing in size u/s not c/w lipoma will send to general surgery after discharge for excision (9) BPH (benign prostatic hyperplasia): Plan: cont Terazosin 2 mg HS (10) Aortic stenosis: Plan: mod-severe on echo likely not contributing to acute CHF (11) Hypomagnesemia: Plan: mag 1.3 at presentation now normal following replacement Plan DVT proph - heparin drip allow diet until MN tonight, then NPO following MN for cath tomorrow Admission and Anticipated Discharge Date Admission Date: October 08, 2023 Subjective tele overnight wnl no dysrhythmia he continues with dyspnea on exertion but no dyspnea at rest dyspnea is improved from yesterday NO chest pain NO nausea/emesis pt confirms he had 2V CABG at [facility] in 2016 pt declines nicoderm or nicorette gum he has never quit for a lengthy period of time Review of Systems 2 Review of Systems: cv - no orthopnea, no PND, no further chest pain pulm - no cough GI - no abd pain or N/V Physical Exam 2 Physical Exam: gen - lying comfortably in bed, NAD neck - at 45 degrees mild JVD present mouth - MMM heart - RRR, s1 s2, 2-3/6 holosystolic murmur RUSB/apex lungs - mild b/l basilar rales, no wheeze, no increased work of breathing abd - soft NT ND BS+; no HSM ext - no edema, pulses 2+ b/l psych - a/o x 3 Results & Data Results & Data Vital Signs (Past 12 Hours) Vital Signs Temp Pulse Pulse Resp BP Pulse Ox O2 Del Method 10/09/23 16:09 37.4 C 68 20 117/65 94 Room Air 10/09/23 11:24 37.3 C 69 131/69 93 Room Air 10/09/23 07:40 63 10/09/23 07:14 37.2 C 71 20 140/75 97 Room Air Laboratory Results Laboratory Results - last 24 hr 10/08/23 10/08/23 10/09/23 20:08 21:15 04:57 WBC 7.54 RBC 3.47 L Hgb 11.7 L Hct 34.2 L MCV 98.6 MCH 33.7 MCHC 34.2 RDW Std Deviation 48.7 H RDW Coeff of Alexandr 13.4 Plt Count 172 MPV 10.5 Immature Gran % (Auto) 0.3 Neut % (Auto) 72.8 Lymph % (Auto) 16.3 Pratt % (Auto) 7.4 Eos % (Auto) 2.4 Baso % (Auto) 0.8 Neut # (Auto) 5.49 Lymph # (Auto) 1.23 Pratt # (Auto) 0.56 Eos # (Auto) 0.18 Baso # (Auto) 0.06 Immature Gran # (Auto) 0.02 Heparin Anti-Xa, Unfract 0.17 L 0.22 L Sodium 138 Potassium 3.5 Chloride 105 Carbon Dioxide 23 Anion Gap 10 BUN 13 Creatinine 0.63 Est Cr Clr Drug Dosing 131.3 Est GFR ( Amer) 117.4 Est GFR (Non-Af Amer) 101.3 BUN/Creatinine Ratio 20.6 H Glucose 153 H POC Glucose 196 H Calcium 8.7 Magnesium 1.8 1.8 Troponin I High Sens 1678.0 H* D 1943.4 H* 10/09/23 10/09/23 10/09/23 07:15 09:14 11:23 WBC RBC Hgb Hct MCV MCH MCHC RDW Std Deviation RDW Coeff of Alexandr Plt Count MPV Immature Gran % (Auto) Neut % (Auto) Lymph % (Auto) Pratt % (Auto) Eos % (Auto) Baso % (Auto) Neut # (Auto) Lymph # (Auto) Pratt # (Auto) Eos # (Auto) Baso # (Auto) Immature Gran # (Auto) Heparin Anti-Xa, Unfract Sodium Potassium Chloride Carbon Dioxide Anion Gap BUN Creatinine Est Cr Clr Drug Dosing Est GFR ( Amer) Est GFR (Non-Af Amer) BUN/Creatinine Ratio Glucose POC Glucose 174 H 164 H Troponin I High Sens 1378.2 H* D 10/09/23 10/09/23 12:00 16:12 Heparin Anti-Xa, Unfract 0.23 L POC Glucose 153 H Diagnostic Findings echo - PG Care Time/CCT Total # of Minutes Spent Total Time Spent with Patient: Total time spent is greater than 50% in coordination of care (as documented) at patient's floor/unit and/or counseling patient: Coding Level of Care Code 98646 SUB INP/OBS CARE 3/50MIN Diagnoses NSTEMI (non-ST elevated myocardial infarction) I21.4 Acute diastolic CHF (congestive heart failure) I50.31 CAD (coronary artery disease) I25.10 S/P CABG (coronary artery bypass graft) Z95.1 DM2 (diabetes mellitus, type 2) E11.9 HTN (hypertension) I10 Tobacco abuse Z72.0 Soft tissue mass M79.89 BPH (benign prostatic hyperplasia) N40.0 Aortic valve stenosis, etiology of cardiac valve disease unspecified I35.0 Cardiac valve disease etiology: etiology unspecified Hypomagnesemia E83.42 (10) Aortic stenosis Cardiac valve disease etiology: etiology unspecified Qualified Code(s): I35.0 - Nonrheumatic aortic (valve) stenosis
[2023-10-09 20:14] LABS: ANTI-Xa, UFH(UnfractionatedHep 0.23 IU/ml (0.3-0.7)
[2023-10-09 21:22] LABS: Influenza A virus by PCR Negative (Neg); Influenza B virus by PCR Negative (Neg); RSV by PCR Negative (Neg); SARS CoV2 RNA(COVID-19) Ceph NEGATIVE (Negative)
--- NOTE | 2023-10-09 22:24 | Electrocardiogram Report ---
Test Reason : Blood Pressure : / mmHG Vent. Rate : 075 BPM Atrial Rate : 075 BPM P-R Int : 186 ms QRS Dur : 088 ms QT Int : 434 ms P-R-T Axes : 079 -30 185 degrees QTc Int : 484 ms Normal sinus rhythm Left axis deviation Cannot rule out Anterior infarct (cited on or before 08-OCT-2023) Abnormal ECG When compared with ECG of 08-OCT-2023 10:43, (unconfirmed) Premature atrial complexes are no longer Present Confirmed by Rocco Tineo ([id number]) on 10/09/2023 10:24:26 PM Referred By: REFERRED SELF Confirmed By:Rocco Tineo
[2023-10-10] MEDS: SODIUM CHLORIDE 0.9% 1,000 ML IV SCH (00:17)
[2023-10-10 03:06] LABS: BUN Creatinine Ratio 22.2 (10-20); Calcium 8.9 mg/dl (8.6-10.3); Chol HDL Ratio 3.3 (0-5); Creatinine Clr Calc Pharmacy 114.2 ml/min; Est GFR (African American) 111.1 ml/min; Est GFR (Non-African American) 95.9 ml/min; Potassium 3.7 mmol/L (3.5-5.1)
[2023-10-10 03:14] LABS: Basophils # (auto) 0.03 K/uL (0.00-0.20); Basophils % (auto) 0.4 %; Eosinophils # (auto) 0.15 K/uL (0.00-0.50); Eosinophils % (auto) 2.2 %; Hematocrit (blood only) 36.6 % (42.0-52.0); Hemoglobin 12.3 g/dl (14.0-18.0); Immature Granulocytes # (auto) 0.02 K/uL (0.01-0.20); Immature Granulocytes % (auto) 0.3 %; Lymphocytes # (auto) 1.26 K/uL (1.20-3.40); Lymphocytes % (auto) 18.2 %; Mean Corpuscular Hemoglobin 33.7 pg (25.0-34.0); Mean Corpuscular Hgb Conc 33.6 g/dL (32.0-36.0); Mean Corpuscular Volume 100.3 fL (80.0-100.0); Mean Platelet Volume 10.5 fL (9.4-12.4); Monocytes # (auto) 0.61 K/uL (0.11-0.59); Monocytes % (auto) 8.8 %; Neutrophils # (auto) 4.87 K/uL (1.40-6.50); Neutrophils % (auto) 70.1 %; Platelet Count 162 K/uL (130-400); RDW Coefficient of Variation 13.5 % (11.5-14.5); RDW Standard Deviation 49.7 fL (36.4-46.3); Red Blood Count 3.65 M/uL (4.70-6.10); White Blood Count 6.94 K/ul (4.8-10.8)
[2023-10-10 03:16] LABS: ANTI-Xa, UFH(UnfractionatedHep 0.28 IU/ml (0.3-0.7)
--- NOTE | 2023-10-10 06:44 | Electrocardiogram Report ---
Test Reason : Blood Pressure : / mmHG Vent. Rate : 071 BPM Atrial Rate : 071 BPM P-R Int : 172 ms QRS Dur : 090 ms QT Int : 440 ms P-R-T Axes : 072 -37 169 degrees QTc Int : 478 ms Normal sinus rhythm Left axis deviation Prolonged QT Abnormal ECG When compared with ECG of 08-OCT-2023 13:30, (unconfirmed) No significant change was found Confirmed by Rocco Tineo ([id number]) on 10/10/2023 6:44:09 AM Referred By: REFERRED SELF Confirmed By:Rocco Tineo
[2023-10-10] MEDS: MIDAZOLAM HCL 1 MG/ML 2ML VIAL ONE (13:32)
[2023-10-10] MEDS: fentaNYL citrate PF 100 MCG/2 ML VIAL ONE (13:32)
[2023-10-10] MEDS: TICAGRELOR 90 MG TAB ONE (13:33)
[2023-10-10] MEDS: NITROGLYCERIN/D5W 100MCG/ML 20ML SYR ONE (13:37)
[2023-10-10] MEDS: niCARdipine HCL INJ 2.5 MG/ML 10 ML AMP ONE (13:37)
[2023-10-10] MEDS: HEPARIN (PORCINE) 1000 UNIT/ML 10 ML (CATH LAB USE ONLY) ONE (13:37)
--- NOTE | 2023-10-10 14:00 | Pre Anesthesia Assessment ---
Date of Service October 10, 2023 Pre Sedation Assessment Vital Signs Temp Pulse Pulse Resp BP Pulse Ox O2 Del Method 10/10/23 13:45 65 16 157/96 H 93 Room Air 10/10/23 11:08 36.6 C 67 18 137/75 95 Room Air 10/10/23 08:10 71 10/10/23 08:10 Room Air 10/10/23 08:01 36.7 C 68 18 132/72 93 Room Air 10/10/23 02:47 36.6 C 65 20 133/74 95 Room Air 10/10/23 00:25 Room Air 10/09/23 22:38 36.5 C 70 21 142/71 H 94 Room Air 10/09/23 21:58 68 10/09/23 19:18 36.6 C 80 21 148/80 H 94 Room Air 10/09/23 17:10 73 10/09/23 16:09 37.4 C 68 20 117/65 94 Room Air Cardiovascular RRR, no murmur, no edema Respiratory normal respiratory effort, lungs clear to auscultation Pre-Sedation Airway Assessment Smoking Status: Current every day smoker Hx Sleep Apnea: No Short, Thick Neck: No Thyromental Distance: > or= 3.5 Finger Breadths Oral Cavity: + Loose Teeth and + WNL Mallampati Class: III ASA: ASA3 NPO Status Date of Last Intake of Fluids: 10/10/23 Time of Last Intake of Fluids: 08:00 Date of Last Intake of Solid Food: 10/09/23 Time of Last Intake of Solid Foods: 20:00 Notes The planned sedation has been discussed with the patient. Informed Consent was obtained. I have identified the patient, determined the appropriateness of sedation and have assessed the patient immediately prior to the procedure. All medicine(s) and interventions are by my order.
--- NOTE | 2023-10-10 14:08 | Electrocardiogram Report ---
Test Reason : Blood Pressure : / mmHG Vent. Rate : 067 BPM Atrial Rate : 067 BPM P-R Int : 184 ms QRS Dur : 090 ms QT Int : 462 ms P-R-T Axes : -09 037 194 degrees QTc Int : 488 ms Normal sinus rhythm Prolonged QT Abnormal ECG When compared with ECG of 09-OCT-2023 08:34, T wave inversion less evident in Lateral leads Confirmed by Khoa Bob ([id number]) on 10/10/2023 2:08:07 PM Referred By: REFERRED SELF Confirmed By:Hernando Bob
--- NOTE | 2023-10-10 15:17 | Post Anesthesia Assessment ---
Date of Service October 10, 2023 Post Sedation Assessment Vital Signs Temp Pulse Pulse Pulse Resp BP BP 10/10/23 14:55 36.6 C 68 21 159/85 H 10/10/23 14:40 36.7 C 80 21 156/77 H 10/10/23 14:25 36.6 C 67 22 160/87 H 10/10/23 14:00 65 16 145/81 H 10/10/23 13:45 65 16 157/96 H 10/10/23 11:08 36.6 C 67 18 137/75 10/10/23 08:10 71 10/10/23 08:10 10/10/23 08:01 36.7 C 68 18 132/72 10/10/23 02:47 36.6 C 65 20 133/74 10/10/23 00:25 10/09/23 22:38 36.5 C 70 21 142/71 H 10/09/23 21:58 68 10/09/23 19:18 36.6 C 80 21 148/80 H 10/09/23 17:10 73 10/09/23 16:09 37.4 C 68 20 117/65 Pulse Ox O2 Del Method 10/10/23 14:55 95 Room Air 10/10/23 14:40 97 Room Air 10/10/23 14:25 94 Room Air 10/10/23 14:00 94 Room Air 10/10/23 13:45 93 Room Air 10/10/23 11:08 95 Room Air 10/10/23 08:10 10/10/23 08:10 Room Air 10/10/23 08:01 93 Room Air 10/10/23 02:47 95 Room Air 10/10/23 00:25 Room Air 10/09/23 22:38 94 Room Air 10/09/23 21:58 10/09/23 19:18 94 Room Air 10/09/23 17:10 10/09/23 16:09 94 Room Air Recovery Score Activity: Moves 4 extremities Respiration: Deep Breath/Cough Circulation: +/-20% PreAnes Value Consciousness: Fully Awake Oxygen Saturation: > 92% On Room Air Post Anesthesia Score: 10 Discharge Sedation Level of Care: Fast Track Phase II Post Sedation Plan On clinical assessment, the patient appears to have tolerated the sedation without complications. Patient is recovering as anticipated. Patient will continue to be monitored by nursing and may be discharged when sedation discharge criteria are met per below protocol. Upon Completions of procedure up to 15 minutes continue every 5 minute vital signs and the P.A.R. score; then discharge to a Phase I or Fast Track to Phase II per the following guidelines: * Discharge Patient to appropriate Phase II area if PAR is 8 or greater or return to pre- procedure baseline. The post - procedure orders will be as directed. * If PAR score is less than 8 or not return to pre-procedure baseline then patient will follow Phase I monitoring till PAR is reached for Phase II. The Phase I may be done in procedure room or may call to secure a Phase I area. * If naloxone or flumazenil are used for reversal, hold in Phase I for continued monitoring from when last reversal dose was given for a minimum of 60 minutes or longer pending the nurse and/or physician discretion of patient condition before discharge to Phase II. Please call the Sedation Physician to re-evaluate and complete post-note for discharge to Phase II area. Do NOT discharge from procedure sedation or Phase 1 until post- sedation evaluation note is complete by procedure /sedation MD Sedation Discharge Instructions to be given to the patient at discharge to home. [facility] [place] Codes (Charges) Indication for Procedure Indication for procedure: NSTEMI Sedation/Anesthesia Procedure 1: Sedation/Anesthesia: 82287 Mod Sedation by the same physician;Init15 Min Child Age 5 & Up (initial 15 min, start 1214) Total Sedation Time (minutes): 74 Procedure 2: Sedation/Anesthesia: 40509 Mod Sedation by the same physician; Ea [id number] Minutes (additional 59 min, end 1328) Total Sedation Time (minutes): 74
--- NOTE | 2023-10-10 21:29 | Hospitalist Progress Note ---
Date of Service October 10, 2023 Assessment & Plan (1) NSTEMI (non-ST elevated myocardial infarction): Plan: peak troponin 1943 no ischemic symptoms since ER presentation s/p heparin drip for nearly 48 hours - now d/c after having had his cath today full cath report not available but he is s/p KEVIN to the prox LAD/ramus? 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 can stop IV fluids lipid parameters noted on lipid profile today appreciate cardiology consultation of note -- [facility] not [facility] 2[facility] CABG (2) Acute diastolic CHF (congestive heart failure): Plan: echo with grade 2 diastolic dysfunction but preserved EF decompensated CHF likely 2nd to #1 s/p diuresis with improved pulmonary symptoms on HD #1 and 2 lasix stopped appear euvolemic today (3) CAD (coronary artery disease): Plan: Cont daily aspirin, beta-damian, BREANA, etc see #1 above SGLT2 on hold (4) S/P CABG (coronary artery bypass graft): Plan: 2 Vessel [facility] - 2016 (5) DM2 (diabetes mellitus, type 2): Plan: a1c 8.8% cont lantus BID cont novolog BSG ac/hs (6) HTN (hypertension): Plan: cont Lisinopril cont metoprolol cont terazosin BPs uncontrolled - would increase metoprolol to 50mg BID (7) Tobacco abuse: Plan: Cessation recommended Declines nicoderm or nicorette gum (8) Soft tissue mass: Plan: Left shoulder mass Present for many years per patient but slowly increasing in size u/s not c/w lipoma will send to general surgery after discharge for excision - [facility] (9) BPH (benign prostatic hyperplasia): Plan: cont Terazosin 2 mg HS (10) Aortic stenosis: Plan: mod-severe on echo likely not contributing to acute CHF but will need yearly surveillance for such (11) Hypomagnesemia: Plan: mag 1.3 at presentation now normal following replacement Plan DVT proph - heparin drip was utilized until today -- now stopped home tomorrow? home Tuesday? will need a note for his landlord Admission and Anticipated Discharge Date Admission Date: October 08, 2023 Subjective saw patient post-cath details of cath not yet posted in the medical record but, by report, received a KEVIN to prox LAD/ramus? he was resting flat in bed w/o chest pain/orthopnea/PND feeling "good" he reports he "needs to get out of here tomorrow so I can pay my rent" he alludes to signing himself out tomorrow even if we don't d/c him told him we could get him a note that he was hospitalized and that this will cover him for his landlord no bleeding from right femoral cath site Review of Systems Review of Systems: cv - no orthopnea/PND/edema pulm - no dyspnea, no cough GI - no N/V Physical Exam Physical Exam: gen - lying flat comfortably in bed, NAD neck - unable to assess for JVD as he has to lay flat post-cath mouth - MMM heart - RRR, s1 s2, 2-3/6 holosystolic murmur RUSB/apex lungs - CTA b/l; no rales or wheeze abd - soft NT ND BS+; no HSM ext - no edema, pulses 2+ b/l psych - a/o x 3 vascular - pulses 2+ b/l feet; femoral artery on right - no hematoma, no aneurysm, dressing in place; no bleeding skin - small, subcutaneous, mobile mass left shoulder region with overlying vascular markings; nontender Results & Data Results & Data Vital Signs (Past 12 Hours) Vital Signs Temp Pulse Pulse Resp BP BP Pulse Ox 10/10/23 20:02 10/10/23 19:38 36.8 C 75 18 143/72 H 95 10/10/23 18:25 36.6 C 68 19 134/72 92 10/10/23 17:15 85 21 166/74 H 97 10/10/23 16:25 36.4 C L 70 20 176/87 H 96 10/10/23 16:25 36.4 C L 70 20 176/87 H 96 10/10/23 14:55 36.6 C 68 21 159/85 H 95 10/10/23 14:40 36.7 C 80 21 156/77 H 97 02/19/24 14:25 36.6 C 67 22 160/87 H 94 10/10/23 14:17 36.5 C 66 21 166/75 H 10/10/23 14:00 65 16 145/81 H 94 10/10/23 13:45 65 16 157/96 H 93 10/10/23 11:08 36.6 C 67 18 137/75 95 O2 Del Method 10/10/23 20:02 Room Air 10/10/23 19:38 Room Air 10/10/23 18:25 Room Air 10/10/23 17:15 Room Air 10/10/23 16:25 Room Air 10/10/23 16:25 Room Air 10/10/23 14:55 Room Air 10/10/23 14:40 Room Air 10/10/23 14:25 Room Air 10/10/23 14:17 Room Air 10/10/23 14:00 Room Air 10/10/23 13:45 Room Air 10/10/23 11:08 Room Air Laboratory Results Laboratory Results - last 24 hr 10/10/23 10/10/23 10/10/23 02:27 07:18 09:42 WBC 6.94 RBC 3.65 L Hgb 12.3 L Hct 36.6 L MCV 100.3 H MCH 33.7 MCHC 33.6 RDW Std Deviation 49.7 H RDW Coeff of Alexandr 13.5 Plt Count 162 MPV 10.5 Immature Gran % (Auto) 0.3 Neut % (Auto) 70.1 Lymph % (Auto) 18.2 Stanton % (Auto) 8.8 Eos % (Auto) 2.2 Baso % (Auto) 0.4 Neut # (Auto) 4.87 Lymph # (Auto) 1.26 Stanton # (Auto) 0.61 H Eos # (Auto) 0.15 Baso # (Auto) 0.03 Immature Gran # (Auto) 0.02 Activ Coag Time Kaolin Heparin Anti-Xa, Unfract 0.28 L 0.30 Sodium 137 Potassium 3.7 Chloride 104 Carbon Dioxide 25 Anion Gap 8 BUN 16 Creatinine 0.72 Est Cr Clr Drug Dosing 114.2 Est GFR ( Amer) 111.1 Est GFR (Non-Af Amer) 95.9 BUN/Creatinine Ratio 22.2 H Glucose 141 H POC Glucose 150 H Calcium 8.9 Triglycerides 140 Cholesterol 116 LDL Cholesterol, Calc 53 VLDL Cholesterol, Calc 28 HDL Cholesterol 35 Cholesterol/HDL Ratio 3.3 10/10/23 10/10/23 10/10/23 12:53 13:19 13:31 WBC RBC Hgb Hct MCV MCH MCHC RDW Std Deviation RDW Coeff of Alexandr Plt Count MPV Immature Gran % (Auto) Neut % (Auto) Lymph % (Auto) Stanton % (Auto) Eos % (Auto) Baso % (Auto) Neut # (Auto) Lymph # (Auto) Stanton # (Auto) Eos # (Auto) Baso # (Auto) Immature Gran # (Auto) Activ Coag Time Kaolin 212 H 217 H 206 H Heparin Anti-Xa, Unfract Sodium Potassium Chloride Carbon Dioxide Anion Gap BUN Creatinine Est Cr Clr Drug Dosing Est GFR ( Amer) Est GFR (Non-Af Amer) BUN/Creatinine Ratio Glucose POC Glucose Calcium Triglycerides Cholesterol LDL Cholesterol, Calc VLDL Cholesterol, Calc HDL Cholesterol Cholesterol/HDL Ratio 10/10/23 10/10/23 16:21 20:14 WBC RBC Hgb Hct MCV MCH MCHC RDW Std Deviation RDW Coeff of Alexandr Plt Count MPV Immature Gran % (Auto) Neut % (Auto) Lymph % (Auto) Stanton % (Auto) Eos % (Auto) Baso % (Auto) Neut # (Auto) Lymph # (Auto) Stanton # (Auto) Eos # (Auto) Baso # (Auto) Immature Gran # (Auto) Activ Coag Time Kaolin Heparin Anti-Xa, Unfract Sodium Potassium Chloride Carbon Dioxide Anion Gap BUN Creatinine Est Cr Clr Drug Dosing Est GFR ( Amer) Est GFR (Non-Af Amer) BUN/Creatinine Ratio Glucose POC Glucose 139 H 128 H Calcium Triglycerides Cholesterol LDL Cholesterol, Calc VLDL Cholesterol, Calc HDL Cholesterol Cholesterol/HDL Ratio PG Care Time/CCT Total # of Minutes Spent Total Time Spent with Patient: Total time spent is greater than 50% in coordination of care (as documented) at patient's floor/unit and/or counseling patient: Coding Level of Care Code 99900 SUB INP/OBS CARE 2/35MIN Diagnoses NSTEMI (non-ST elevated myocardial infarction) I21.4 Acute diastolic CHF (congestive heart failure) I50.31 CAD (coronary artery disease) I25.10 S/P CABG (coronary artery bypass graft) Z95.1 DM2 (diabetes mellitus, type 2) E11.9 HTN (hypertension) I10 Tobacco abuse Z72.0 Soft tissue mass M79.89 BPH (benign prostatic hyperplasia) N40.0 Aortic valve stenosis, etiology of cardiac valve disease unspecified I35.0 Cardiac valve disease etiology: etiology unspecified Hypomagnesemia E83.42 (10) Aortic stenosis Cardiac valve disease etiology: etiology unspecified Qualified Code(s): I35.0 - Nonrheumatic aortic (valve) stenosis
[2023-10-11 08:06] LABS: Basophils # (auto) 0.04 K/uL (0.00-0.20); Basophils % (auto) 0.5 %; Eosinophils # (auto) 0.13 K/uL (0.00-0.50); Eosinophils % (auto) 1.6 %; Hematocrit (blood only) 39.1 % (42.0-52.0); Hemoglobin 13.6 g/dl (14.0-18.0); Immature Granulocytes # (auto) 0.03 K/uL (0.01-0.20); Immature Granulocytes % (auto) 0.4 %; Lymphocytes % (auto) 11.3 %; Mean Corpuscular Hgb Conc 34.8 g/dL (32.0-36.0); Mean Corpuscular Volume 97.8 fL (80.0-100.0); Mean Platelet Volume 10.2 fL (9.4-12.4); Monocytes # (auto) 0.72 K/uL (0.11-0.59); Neutrophils # (auto) 6.14 K/uL (1.40-6.50); Neutrophils % (auto) 77.2 %; Platelet Count 180 K/uL (130-400); RDW Coefficient of Variation 13.5 % (11.5-14.5); RDW Standard Deviation 48.4 fL (36.4-46.3); White Blood Count 7.96 K/ul (4.8-10.8)
[2023-10-11 08:36] LABS: BUN Creatinine Ratio 20.6 (10-20); Calcium 9.7 mg/dl (8.6-10.3); Creatinine Clr Calc Pharmacy 129.4 ml/min; Est GFR (African American) 117.4 ml/min; Est GFR (Non-African American) 101.3 ml/min
[2023-10-11] MEDS: TICAGRELOR 90 MG TAB PO SCH (08:56)
[2023-10-11] MEDS: ROSUVASTATIN CALCIUM 20 MG TAB PO SCH (08:57)
[2023-10-11] MEDS: ASPIRIN 81 MG ECTAB PO SCH (10:05)
--- NOTE | 2023-10-11 19:51 | Discharge Summary ---
Date of Service October 11, 2023 Admission HPI Per Admitting Provider Alexander is a 67[facility]year-old [facility] presents with chest pain for 3 days improved with nitro but which recurred this morning and did not improve after 3 tablets of nitro. Patient received full dose aspirin and route. Symptoms have been worse with exertion but occurred today at rest. Patient reports his symptoms started with Chest pain recurrently in the last week. Has had rare intermittent pain 'couldn't tell you how often', but the last 2-3 days had gotten worse. Chest pain would be brought out by getting up to go to the bathroom, low substernal a little to the left. 'Gotten up to 05/31'. Nit ro had gotten rid of it completely up until this past week. Last 2 -3 days still helped not always completely improved. Pain this morning stated when he was laying down at rest. Does not think he has had orthopnea/shortness of breath laying down earlier in the week, but episode this morning did occur when he was in bed laying down nitro pills did not work. 'Brand new patch, took 3 and it did nothing'. Had a total of 6 aspirin this morning, 2 at home and then 4 more by EMS. Endorses shortness of breath but no sweating this morning. He reports he is completely pain free again at time of assessment ~1pm after nitro patch placed. Hx of Bipass 2016 at [facility]. No history of stents. Has felt ok since, doesn't remembe rif he had a stress test or not.PCP is Dr. Allison at [facility]. denies syncope/presyncope. Denies fever/chills/sweats. Denies nausea/vomiting. Endorses bilateral lower extremity swelling which has been progressing for "a while "he does not know if this is worsened recently. He denies past history of congestive heart failure, was on fluid pills for couple of months after his bypass in 2018 but has not been on the symptoms. He reports he does not know if this is because they just were not refilled or if they were meant to be discontinued. Endorses ongoing tobacco abuse Somewhat poor historian but bedside med History: DM2 (on metformin, recently started on 'something but I'm not sure what, empagliflozin sounds right). DOes not know his metformin dose, just that its 2 pills twice daily. Metoprolol twice daily. Lisinopril for BP, took this morning. Takes aspirin 81mg daily. Takes rosuvasttin 20mg, took this morning. Terazosin for BPH. Medical History: Reviewed Medications: Reviewed Surgical History: Reviewed Family history: Reviewed Allergies: Reviewed. Allergic to imdur. --> headache and nauseua. No medication allergie Social History: Current smoker. ~0.5-1ppd cigarette use x20 years. Alcohol use, every other day has a 6 pack. No withdrawal or shakes, has gone several days in a row recently without etoh and no sx. Recreational marijuana, is eligable for [employer] but hasn't paid the fee. Code Status: Full Code Principal Diagnosis NSTEMI Discharge Exam PHYSICAL EXAMINATION Last 24h vital signs reviewed, see documentation in flowsheet General: comfortable appearing, no distress HEENT: Normocephalic, atraumatic, pupils round and equal, sclerae anicteric, no conjunctival injection, moist mucus membranes Lungs: Normal respiratory effort. Clear to auscultation bilaterally. No RRW Heart: Regular rate and rhythm, no murmurs. No JVD Abdomen: Soft, nontender, nondistended. Bowel sounds present. Extremities: Warm, dry, well-perfused. No extremity edema. R groin access site cdi no swelling no ecchymosis no bruit Neuro: Alert and oriented x 4, face symmetric, moves 4 extremities well Psych: Normal affect and behavior Discharge Data Allergies Allergy/AdvReac Type Severity Reaction Status Date / Time isosorbide [From Imdur] Allergy Severe Nausea and Unverified 10/08/23 12:19 Headache Consultations 10/08/23 12:09 ED Decision to Admit Stat 10/08/23 15:58 Consult Cardiology Routine 10/10/23 13:48 Consult Cardiac Rehabilitation Routine Procedures Performed Operation Date: 10/10/23 11:30 Actual Procedures p Cath, Cors with Grafts (no LV) - Rick Rush MD, PhD s Cineradiography w/Routine Exam - Rick Rush MD, PhD s Coronary Lithotripsy - Rick Rush MD, PhD s Drug Eluting Stent SGl Vessel - Rick Rush MD, PhD s Ultrasound Vascular Access - Rick Rush MD, PhD s Placement Art Occlusive Device - Rick Rush MD, PhD Ordered Studies 10/08/23 13:42 US softtissue chstwall/uprback Routine 10/10/23 11:22 Cath Imgs for PACS use only Routine Hospital Course (1) NSTEMI (non-ST elevated myocardial infarction): Presented with chest pain and dyspnea, found to have Irx-RH-fgueyzxal DC peak troponin 1943 no ischemic symptoms since ER presentation treated with heparin drip for 48 hours full cath report not available but he had KEVIN to the prox LAD/ramus cont asa 81mg daily and added ticagrelor - should be on DAPT x 1 year - discussed importance of not stopping/running out with patient cont metoprolol tartrate 25mg BID cont lisinopril 10mg daily increased crestor to 40mg daily of note -- I do not have any records from the [facility] re: his 2016 2V CABG he will call to schedule with [facility] cardiology JASON - he says "they've been trying to get me in" advised that if he could not be seen promptly, call to schedule follow up with Dr. Rush (2) Acute diastolic CHF (congestive heart failure): echo with grade 2 diastolic dysfunction but preserved EF presented with acute diastolic CHF related to the NSTEMI and was treated with IV lasix - needed only a few doses now euvolemic. does not have history of chronic heart failure or leg edema. follow up in primary care and cardiology, initiate oral lasix if any persistent symptoms of heart failure counseled on lowering salt in his diet (3) CAD (coronary artery disease): see #1 above (4) S/P CABG (coronary artery bypass graft): 2 Vessel [facility] - 2016 (5) DM2 (diabetes mellitus, type 2): a1c 8.8% (6) HTN (hypertension): cont Lisinopril cont metoprolol cont terazosin (7) Tobacco abuse: Counseled cessation - says he has nicotine patches at home (8) Soft tissue mass: Left shoulder mass Present for many years per patient but slowly increasing in size u/s not c/w lipoma recommend outpatient general surgery referral for excision - [facility] (9) BPH (benign prostatic hyperplasia): cont Terazosin 2 mg HS (10) Aortic stenosis: mod-severe on echo likely not contributing to acute CHF but will need yearly surveillance for such (11) Hypomagnesemia: mag 1.3 at presentation now normal following replacement Plan Total Time Total Time Spent Total Time Spent (In Minutes): I personally spent: 35 minutes today on clinical care activities including: reviewing chart notes and vital signs reviewing labs reviewing studies discussion with client experience consultant, bedside RN examining and counseling the patient writing orders, prescriptions, discharge instructions documentation Discharge Plan Discharge Items Patient Disposition: Home - Self-Care Reason For Visit: UNSTABLE ANGINA, CHF Discharge Diagnosis: Non-ST elevation DC Condition on Discharge: Fair Activity: Per Instructions section Activity Comment: follow up with cardiac rehab to increase your exercise tolerance safely Non-emergency contact: Primary Care Provider and Principal Statistical Scientist Call non-emergency contact if: you have any medication questions, your symptoms worsen, your pain is not controlled, you have a fever, your wound has increased redness and your wound has increased drainage Follow-up/Referrals: Rick Rush MD, PhD [Physician] - 11/02/23 3:00 pm (Please review insurance authorization. ) [facility] [Primary Care Provider] - Diet: Carb Consistent or DM2 and Heart Healthy Addtl Attending Provider Instructions: You were treated for heart attack with medications and stenting (a branch of the left coronary artery called the ramus) -you need to take BOTH baby aspirin and brilinta (ticagrelor) ideally for a year to help heal the stent and keep it open, after that your auto appraiser might decrease to just one of these -stopping one or both of these meds early can result in a severe heart attack from the stent clotting up - do not run out, and do not stop them unless under direction of a auto appraiser Follow a low salt diet to prevent fluid overload and breathing problems If you develop leg swelling or increased trouble breathing call your doctor - you might need to be started on a diuretic (water pill) I strongly advise you to try to quit smoking - this is one of the most powerful things you can do to prevent future heart attacks and heart failure episodes Follow up with your auto appraiser at [place] as soon as possible, ideally within 2 weeks. If you're not able to be seen in a reasonable amount of time you can schedule follow up with Dr. Rush ACTIVITY RECOMMENDATIONS: It is common to feel weak and fatigue for a few days. * Do not drive or operate any motorized equipment for the next three days. * Limit stair usage (2 or 3 trips a day only) for the next three days. * Do not lift anything heavier than 10 pounds for the next three days. * Do not engage in vigorous exercise or any sports for the next five days. * You may shower the day after your procedure, but do not immerse the area for three days. Cleanse the site gently with soap and water. SPECIAL CARE INSTRUCTIONS: * You may replace the pressure dressing or band-aid the morning after the procedure. * After your procedure, it is normal to have a small bruise or small lump at the site. Examine your site daily for any change in the bruise or lump, redness, swelling, drainage or numbness. Notify your doctor if any change. BLEEDING: * If there is a small amount of bleeding at the site, lie down and apply firm pressure with a clean cloth for ten minutes. When the bleeding stops, lie quietly keeping the procedure limb straight for six hours. Notify your doctor as soon as possible. * If the bleeding does not stop after ten minutes or if there is a large amount of bleeding or spurting, call 911 immediately. Continue to lie down and hold firm pressure until help arrives. SKIN IRRITATION: * You may experience some redness and/or swelling in the area where radiation was administered. If any skin irritation occurs, please contact your family physician. FOLLOW UP VISIT: Keep any scheduled doctor appointments. Pending Studies at Discharge: No Stand-Alone Forms: My [facility] ReVera, Smoking Cessation Medications and DC Order Prescriptions: New Brilinta 90 mg Tablet 90 mg PO BID Qty: 60 1RF aspirin 81 mg Tablet,Delayed Release (Dr/Ec) 81 mg PO QAM Qty: 30 1RF rosuvastatin [Crestor] 40 mg tablet 40 mg PO QAM Qty: 30 0RF magnesium oxide 400 mg (241.3 mg magnesium) Tablet 400 mg PO DAILY Qty: 30 1RF Continued cyanocobalamin (vitamin B-12) [Vitamin B-12] 1,000 mcg Tablet Extended Release 1,000 mcg PO DAILY terazosin 2 mg Capsule 2 mg PO HS lisinopril 10 mg Tablet 10 mg PO DAILY nitroglycerin [Nitrostat] 0.4 mg Tablet, Sublingual 0.4 mg sublingual UD PRN (Reason: Chest Pain) omeprazole 20 mg Capsule,Delayed Release(Dr/Ec) 20 mg PO DAILY metoprolol tartrate 25 mg Tablet 25 mg PO BID Jardiance 25 mg Tablet 12.5 mg PO DAILY Discontinued rosuvastatin 20 mg Tablet 20 mg PO DAILY Discharge Orders: Discharge Order (Routine); Ordered 10/11/23 Ordered By: Maki Shi/Other Patient Handouts: Stroke and Heart Disease, Heart Failure and Depression, Quitting Smoking, What Is Heart Failure, Diabetes and Heart Disease, Low-Salt Choices, Exercise for a Healthier Heart, Heart Failure: Tracking Your Weight, Heart Failure: Know Your Baselines Admission Data Admit Date/Time: 10/08/23 13:33 Attending Provider: Maki Edwards Admit Provider: Silver Mcgraw Primary Care Provider: [facility] Other Providers: Silver Mcgraw; Rocco Tineo Other Interventions: Discharge Summary Assessment (RN) Last Done: 10/11/23 12:59 Coding Level of Care Code 51954 INP/OBS DISCH >30 MIN Diagnoses NSTEMI (non-ST elevated myocardial infarction) I21.4 Acute diastolic CHF (congestive heart failure) I50.31 CAD (coronary artery disease) I25.10 S/P CABG (coronary artery bypass graft) Z95.1 DM2 (diabetes mellitus, type 2) E11.9 HTN (hypertension) I10 Tobacco abuse Z72.0 Soft tissue mass M79.89 BPH (benign prostatic hyperplasia) N40.0 Aortic valve stenosis, etiology of cardiac valve disease unspecified I35.0 Cardiac valve disease etiology: etiology unspecified Hypomagnesemia E83.42
--- NOTE | 2023-10-12 17:41 | Cardiac Catheterization ---
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 Cardiac Status Clinical evaluation leading to the procedure CAD Presenation: Non STEMI Anginal Classification: CCS IV Heart Failure: No Cardiogenic Shock within 24 Hours: No Cardiac Arrest within 24 Hours: No Imaging Studies Past 6 Months: No Stress Studies Past 6 Months: No Coronary Anatomy Left Main (% Stenosis): Normal LAD (% Stenosis): Ostial (99%) and Proximal (100%) Circumflex (% Stenosis): Normal OM1 (% Stenosis): Normal OM2 (% Stenosis): Normal (Diffuse up to 100%) RCA (% Stenosis): Ostial (90%), Proximal (95%), Mid (50%) and Distal (Diffuse 95%) R PDA (% Stenosis): Ostial (100%) R PL1 (% Stenosis): Normal Ramus (% Stenosis): Proximal (99%), Mid (50%) and Distal (70%) Grafts - LAD (%): Normal Grafts - RCA (%): Normal Diagnostic Physicians Name: Rick Rush MD, PhD Closure Device Percutaneous Entry Location: Femoral Closure Device: Angio-Seal Recommendations: Medical Therapy and/or Counseling and PCI without planned CABG PCI Indication: PCI for high risk Non-CHAITANYA Lesion Segment Name: Ostial to proximal ramus Culprit Artery: Yes Stenosis Prior to Rx (%): 99% Chronic Total Occlusion: No Pre-Procedure АННА Flow: 1 Previously Treated Lesion: No Lesion Complexity: High/C Lesion Length (mm): 12 mm Thrombus Present: No Bifurcation Lesion: No Guidewire Across Lesion: Yes Cardiac Cath Procedure Full Procedure Date October 10, 2023 Pre-Procedure Diagnosis Pre-Procedure Diagnosis: Non STEMI AUC Score AUC Score: 07 Post-Procedure Diagnosis Post-Procedure Diagnosis: Severe CAD and Successful PCI Procedure(s) Performed Procedure(s) Performed: Coronary Angiography, Drug Eluting Stent, Ultrasound Guided Vascular Access, Bypass Graft Angiography and Procedure (Intracoronary lithotripsy) Jigger Artisan Rick Rush MD, PhD Estimated Blood Loss Estimated Blood Loss: 15 mL Medication(s) Medication(s): Fentanyl, Heparin, Lidocaine 1% and Versed Summary of Findings Brief description: Patient was brought to the cardiac catheterization suite where he was shaved and prepped in a sterile fashion. Sedated using IV Versed and fentanyl. Soft tissues of the right groin were anesthetized using 10 mL of 1% Xylocaine. Using the ultrasound for guidance (image saved), the right femoral artery was accessed and a 5 [place] femoral artery sheath was placed. All catheters were advanced and exchanged over a 0.035 J-tip wire. Left coronary angiography was performed in orthogonal views with a 5 [place] JL 4 diagnostic catheter. Right coronary angiography was attempted with a 5 [place] JR4 diagnostic catheter but this was unsuccessful. Right coronary angiography was subsequently successful using a 5 [place] 3 DRC diagnostic catheter. SVG to PDA graft angiography was performed with a 5 [place] multipurpose 2 diagnostic catheter. PITTMAN graft angiography was performed with a 5 [place] IM diagnostic catheter. All diagnostic catheters were removed. Decision was made to perform PCI of the ramus lesion. 5 [place] femoral artery sheath was exchanged for a 6 [place] femoral artery sheath. Patient was provided IV heparin. ACT was checked intermittently and additional heparin provided as needed to maintain therapeutic ACT. 6 [place] EBU 3.5 guide catheter was advanced to the left main but did not provide adequate backup support. Therefore it was exchanged for a 6 [place] EBU 4.0 guide catheter. BMW reversal guidewire was advanced through the guide catheter and under fluoroscopic guidance was positioned distally in the ramus branch. The lesion was predilated using a 2.0 x 8 mm trek balloon up to 14 hannah with 2 inflations. Intracoronary lithotripsy was then performed using a 2.5 x 12 mm shockwave balloon. 2 runs at 4 hannah with a third run at 6 hannah. Additional predilatation was performed with a 2.5 x 15 mm sprinter balloon at 16 hannah. Additional intracoronary lithotripsy was performed using a 3.0 x 12 mm shockwave balloon initially at 4 hannah with the second run at 6 hannah. After shockwave balloon was removed. A 3.0 x 15 mm Drifting drug-eluting stent was delivered across the lesion and deployed at 18 hannah. A second inflation was performed up to 22 hannah. Stent balloon was removed and the stent was postdilated using a 3.5 x 12 mm trek noncompliant balloon at 16 hannah distally and 18 hannah proximally. Noncompliant balloon was then removed. Junior Data Analyst angiography was performed. Guidewire was removed and final angiographic evaluation was performed. Guide catheter was removed over the J-wire. Limited right femoral artery angiography was performed to evaluate for closure. Findings were favorable, therefore, the 6 [place] femoral artery sheath was exchanged for a 6 [place] Angio-Seal closure device. This was deployed in the recommended fashion. We obtained immediate hemostasis and the patient remained hemodynamically stable. He was then returned to the recovery area. This ended the case. Coronary and graft angiography findings: COY-cexhl-pqipcng vessel which trifurcates into LAD, ramus, and circumflex. Mild luminal irregularities. LAD-there is an ostial stenosis of 99%. Very thin and fleeting contrast visualized into the proximal portion where the vessel is then 100% occluded. VWb-pncmz-bpysqeo nondominant vessel. Provides a small OM1 followed by a medium to large caliber branching OM 2. This has diffuse severe disease with up to 100% stenosis. The vessel continues after this in the AV groove providing atrial branch and terminating. Ramus-large caliber multi branching vessel. Ostial to proximal heavily calcified 99% stenosis. АННА I flow. The mid vessel also has calcification and diffuse mild disease of up to 50% narrowing. Distally the vessel has 70% stenosis. KPW-cqrox-mqevhpc and dominant. Ostially there is a 90% stenosis. Proximal portion is calcified and has a 95% stenosis. Mid segment has less than 50% stenosis. Distally there is diffuse "beads on a string" appearance with up to 95% stenosis. Posterolateral branch is patent. PDA is occluded at the ostium. SVG to PDA-this is a large-caliber venous graft. There is diffuse mild degeneration with nothing more than 50% narrowing. Distal anastomosis is on the proximal PDA which is seen to be large with many septal branches. No significant disease in the [place] vessel distal to the anastomosis. АННА-3 flow. PITTMAN to PRQ-fyidm-lzbntru and widely patent graft. Distal anastomosis on the distal LAD. The [place] LAD distal to the lesion is very small in caliber and there is a small in length lesion of approximately 90%. There is good retrograde flow up the [place] vessel which demonstrates a medium to large caliber vessel and retrograde flow to the early mid vessel providing several large septal branches. PCI of ramus 0% residual stenosis post PCI АННА-3 flow post PCI No evidence of significant dissection or perforation post PCI Summary: 1. Severe multivessel [place] coronary artery disease. 2. 2 out of 2 bypass grafts remain patent. 3. There are 2 potential culprits for the patient's symptoms. The first is the distal LAD lesion but this is too small for PCI. The second is the very large caliber ramus vessel. This supplies a larger amount of myocardium and therefore is the best target to reduce symptoms. It is also large enough for complex PCI. 4. Successful PCI of the ramus intermedius with implantation of a drug-eluting stent after shockwave intracoronary lithotripsy was performed. 5. Dual antiplatelet therapy with aspirin and Brilinta for 1 to 2 years. 6. Guideline directed medical therapy for secondary prevention of coronary disease as tolerated. Hemodynamics Rest Ao:: 122/79 mmHg Final Ao: 153/78 mmHg LV: Not performed Recommendations Recommendations: Medical Therapy and/or Counseling and PCI without planned CABG Radiation Exposure (mGy) 4063 mGy, fluoroscopy time 24.9 minutes Contrast (mls) 300 mL Anesthesia 2 mg Versed, 50 mcg fentanyl IV. Start time 1214, end time 1328 Procedural Complication(s) None Disposition Recovery Room\\PACU I attest to the content of the Intraoperative Record and any orders documented therein. Any exceptions are noted below. [email or web address] Card Cath Procedure Codes Cardiac Catheterization Procedure 1: Cardiovascular Cath Procedures: 16330 Coronaries and Grafts/IM (venous & atrial) Therapeutic Services & Ancillary Procedure 1: Cardiovascular Tx and Anc Procedures: 69888 Ultrasonic Guidance Vascular Access Moderate Sedation Procedure 1: Sedation/Anesthesia: 59774 Mod Sedation by the same physician;Init15 Min Child Age 5 & Up (Initial 15 min, start 1214) Procedure 2: Sedation/Anesthesia: 69430 Mod Sedation by the same physician; Ea [id number] Minutes (Additional 59-minute, and 1328) Stenting Procedure 1: Cardiovascular Stent Procedures: 70697 Perc transluminal revascularization of acute sub/total occl, aMI (Ramus add CPT modifier +0715 T (intracoronary lithotripsy)) PG Care Time/CCT Total # of Minutes Spent Total Time Spent with Patient: Total time spent is greater than 50% in coordination of care (as documented) at patient's floor/unit and/or counseling patient:
== END 2023-10-11 14:55 | disposition home or self-care (01) | DRG 321 ==
LOC: ED 10:38 → 2S 13:33 → SUATTDRO 13:33 → 2S 15:30
PROC: CLB.CCG (2023-10-10 11:30)